=== PATIENT | male | born 1970 | race Caucasian/White ===

== ENCOUNTER → 2016-07-14 | Outpatient (CLI) | payer BC ==
[~2016-07-14] MED LIST: CEPH500C2 PO; LISI-621 PO; MULT1TAB69 PO; [UNRECOGNIZED DRUG - CODE] PO
--- NOTE | 2016-07-14 15:15 | DI ---
Indication: ITS.REASON: N50.9 Disorder of male genital organs, unspecified PROCEDURE: US TESTICULAR: Encounter: Initial Comparison: None FINDINGS: Both testicles are present in expected location. The testicles demonstrate a homogenous echotexture without intratesticular mass. The right testicle measures 4.4 x 2.6 x 3.3 cm, and the left testicle measures 4.4 x 1.8 x 3.2 cm. Color Doppler imaging demonstrates symmetric, arterial flow throughout both testicles. Normal pulsed Doppler arterial and venous waveforms were obtained from each testicle. Right epididymis shows several small epididymal head cyst measuring 3 to 4 mm in size. Left epididymis appears similar with a 5 mm epididymal head cyst. No focal hyperemia. Small left hydrocele. IMPRESSION: No acute abnormality. No evidence of testicular torsion or epididymitis. .
== END ==
LOC: IMA 14:27
PROVIDERS: ATTEND Specialist
DX: N50.9 Disorder of male genital organs, unspecified (principal)